=== PATIENT | male | born 1960 ===

== ENCOUNTER 2018-05-21 09:47 | Inpatient (IN) | payer OTHER ==
[2018-05-21] MEDS ORDERED: cefOXitin SODIUM 2 GM in NS 100 ML IV ONE (10:02)
[2018-05-21] MEDS ORDERED: LIDOCAINE 1% 2 ML INJ ID PRN (10:02)
[2018-05-21] MEDS ORDERED: LR 1,000 ML IV ONE (10:02)
[2018-05-21] MEDS ORDERED: BUPIVACAINE/EPI 0.5% 30 ML SDV ONE (10:45)
[2018-05-21] MEDS ORDERED: HYDROmorphONE/DILAUDID 1 MG/ML INJ IVP PRN ×2 (11:08→16:17)
[2018-05-21] MEDS ORDERED: MIDAZOLAM 2 MG/2 ML VIAL IVP ONE (11:08)
[2018-05-21] MEDS ORDERED: NALOXONE HCL 0.4 MG/ML INJ IVP PRN (11:08)
[2018-05-21] MEDS ORDERED: fentaNYL 100 MCG/2 ML INJ IVP PRN (11:08)
[2018-05-21] MEDS ORDERED: ACETAMINOPHEN 500 MG TAB PO PRN (11:08)
[2018-05-21] MEDS ORDERED: DEXAMETHASONE 4 MG/ML VIAL IVP PRN (11:08)
[2018-05-21] MEDS ORDERED: ALBUTEROL 3 ML DEYVIAL IH PRN (11:08)
[2018-05-21] MEDS ORDERED: oxyCODONE IR 5 MG TAB PO PRN (11:08)
[2018-05-21] MEDS ORDERED: ONDANSETRON 4 MG/2 ML VIAL IVP PRN ×2 (11:08→16:17)
--- NOTE | 2018-05-21 11:10 | PDANEPAE ---
ANE History of Present Illness Robot Prostatectomy ANE Past Medical History - Cardiovascular History Hx Hypertension: No Hx Arrhythmias: No Hx Chest Pain: No Hx Coronary Artery / Peripheral Vascular Disease: No Hx CHF / Valvular Disease: No Hx Palpitations: No - Pulmonary History Hx COPD: No Hx Asthma/Reactive Airway Disease: No Hx Recent Upper Respiratory Infection: No Hx Oxygen in Use at Home: No Hx Sleep Apnea: No Sleep Apnea Screening Result - Last Documented: Negative - Neurologic History Hx Cerebrovascular Accident: No Hx Seizures: No Hx Dementia: No - Endocrine History Hx Diabetes: No - Renal History Hx Renal Disorders: No - Liver History Hx Hepatic Disorders: No - Neurological & Psychiatric Hx Hx Neurological and Psychiatric Disorders: No - Cancer History Hx Cancer: No Cancer History Comment: prostate new diagnosis - Congenital Disorder History Hx Congenital Disorders: No - GI History Hx Gastrointestinal Disorders: No - Other Health History Other Health History: none - Chronic Pain History Chronic Pain: No - Surgical History Prior Surgeries: pelvic repair ANE Review of Systems Review of Systems: - Exercise capacity Exercise capacity: >=4 METS METS (RN): 6 METS ANE Patient History - Allergies Allergies/Adverse Reactions: bee venom protein (honey bee) Allergy (Verified 05/18/18 10:26) Other-Enter Comments - Home Medications Home Medications: Acetaminophen [Tylenol 325mg (*)] 325 mg PO DAILY PRN 05/12/18 [Last Taken 2 Weeks Ago ~05/07/18] - NPO status NPO Since - Liquids (Date): 05/20/18 NPO Since - Liquids (Time): 22:00 NPO Since - Solids (Date): 05/20/18 NPO Since - Solids (Time): 10:00 - Smoking Hx Smoking Status: Never smoked - Family Anes Hx Family Hx Anesthesia Complications: none ANE Labs/Vital Signs - Vital Signs Blood Pressure: 129/83 Heart Rate: 69 Respiratory Rate: 14 O2 Sat (%): 93 Height: 177.8 cm Weight: 113.398 kg ANE Physical Exam - Airway Neck exam: FROM Mallampati Score: Class 2 Mouth exam: normal dental/mouth exam - Pulmonary Pulmonary: clear to auscultation - Cardiovascular Cardiovascular: regular rate and rhythym - ASA Status ASA Status: II ANE Anesthesia Plan Anesthesia Plan: general endotracheal anesthesia
[2018-05-21] MEDS ORDERED: HYDROmorphONE/DILAUDID 2 MG/ML INJ ONE (11:13)
[2018-05-21] MEDS ORDERED: PROPOFOL 200 MG/20 ML VIAL ONE (11:14)
[2018-05-21] MEDS ORDERED: ONDANSETRON 4 MG/2 ML VIAL ONE (11:15)
[2018-05-21] MEDS ORDERED: DEXAMETHASONE 4 MG/ML VIAL ONE (11:15)
--- NOTE | 2018-05-21 12:10 | PDHPUP ---
History & Physical Update H&P update statement: This history and physical update is based on an assessment of the patient which was completed after admission or registration (within 24 hours), but prior to the surgery/procedure. H&P update: no change in patient's condition since H&P completed
[2018-05-21] MEDS ORDERED: THROMBIN(HUM PLAS)/FIBRINOG/CA 2 ML VIAL TP ONE ×2 (13:09→13:56)
[2018-05-21] MEDS ORDERED: ROCURONIUM 100 MG/10 ML VIAL ONE (13:16)
[2018-05-21] MEDS ORDERED: THROMBIN (BOVINE) 20,000 UNIT VIAL TP ONE (14:30)
--- NOTE | 2018-05-21 16:10 | POSTANESTH ---
Post Anesthetic Evaluation Cardiovascular Status: Normal, Stable Respiratory Status: Normal, Stable Level of Consciousness/Mental Status: Can Participate in Eval, Mildly Sleepy, Arousable Pain Control: Adequate, Prn Tx Ordered Nausea/Vomiting Control: Adequate, Prn Tx Ordered Complications Possibly Related to Anesthesia: None Noted
--- NOTE | 2018-05-21 16:16 | POSTOPPROG ---
Post Op Note Date of Operation: 05/21/18 Surgeon: Gisela Villegas (# [id number]) Disaster Response Director: Evangelina Uribe Anesthesia: GET(General Endotracheal) Pre-op Diagnosis: Prostate cancer Post-op Diagnosis: Prostate cancer Procedure: Attempted robotic radical prostatectomy, left PLND Findings: See op note Inf/Abcess present in the surg proc area at time of surgery?: No EBL: 100-500 (150 cc) Complications: Unable to remove prostate due to extensive deep pelvic venous collateralization and associated pelvic fibrosis Drains: Jarrett Boles (10 Flat) Specimen(s): Left pelvic LN's
[2018-05-21] MEDS ORDERED: PROMETHAZINE HCL 25 MG/ML INJ IVP PRN (16:17)
[2018-05-21] MEDS ORDERED: LIDOCAINE 2% JELLY 5 ML TUBE TP PRN (16:17)
[2018-05-21] MEDS ORDERED: HYDROCODONE/APAP 10/325 TAB PO PRN (16:17)
[2018-05-21] MEDS: D5W 1/2 NS 1,000 ML IV SCH (17:21)
--- NOTE | 2018-05-21 18:41 | GOP ---
[f rep st] OPERATIVE REPORT DATE OF OPERATION: 05/21/2018 SURGEON: Gisela Villegas MD SEXUAL HEALTH PHYSICIAN: Liya Uribe ANESTHESIA: General endotracheal. PREOPERATIVE DIAGNOSIS: Prostate adenocarcinoma. POSTOPERATIVE DIAGNOSIS: Prostate adenocarcinoma. PROCEDURE PERFORMED: 1. Attempted robotically-assisted laparoscopic radical prostatectomy. 2. Robotically-assisted laparoscopic left pelvic lymphadenectomy. FINDINGS: Extensive pelvic fibrosis overlying the right obturator fossa, to a lesser extent the left obturator fossa, and extensive fibrosis involving the deep pelvis overlying the prostate and endopelvic fascia. An extensive, aberrant, and deep right-sided pelvic venous plexus was encountered lateral to the right side of the prostate, deep to the endopelvic fascia. My presumption is this venous collateralization developed as a result of the patient's prior extensive pelvic fracture from several years ago. SPECIMENS: Left pelvic lymph node package. ESTIMATED BLOOD LOSS: Approximately 150 cc. INDICATIONS: This is a gentleman who was diagnosed recently with clinically localized prostate adenocarcinoma and has opted for radical prostatectomy as definitive therapy. The indications for the procedures, as well as potential risks and complications, were discussed with the patient preoperatively. He appeared to understand, his questions were answered, and he wished to proceed. Written informed surgical consent was thereafter obtained. DESCRIPTION OF PROCEDURE: The patient was brought to the operating room and administered general endotracheal anesthesia. He was carefully placed in the low lithotomy position on the operating room table with Reji stirrups. The arms were extended less than 90 degrees on arm boards. All appropriate pressure points were padded as necessary. The abdomen and genitalia were sterilely prepped and draped in standard fashion utilizing Ioban. An 18-Surinamese Riggs catheter was placed to bag drainage sterilely on the field without complication. I obtained intraabdominal access by using a Veress needle approximately 2 cm above the umbilicus in the midline. The abdomen was insufflated to 15 mmHg pressure. A 12 mm laparoscopic port was placed at this location, and the 0- degree 12 mm robotic camera was used to confirm proper intraabdominal placement. The abdomen was carefully inspected. There were no obvious abnormalities appreciated at this point with the exception of a few adhesions between the colonic mesentery on the left side and the lateral abdominal wall on that same side. I then marked out my remaining port sites which were as follows: An 8 mm robotic port placed in the left lower quadrant approximately 2 cm below the umbilicus and 12 cm lateral to the midline, an 8 mm robotic port in the right lower quadrant 2 cm below the umbilicus and 7.5 cm lateral to the midline, a third 8 mm robotic port placed 8 cm lateral to the right lower quadrant robotic port and nearly in the same transverse line as the umbilicus, and a 12 mm assistant production manager port placed in the left upper quadrant along the lateral edge of the rectus muscle. All these ports were placed under direct vision without complication. The patient was then placed in approximately 27 degree Trendelenburg position. The robot was then docked between the patient's legs. The robotic arms were then secured to the appropriate laparoscopic and robotic ports. The 12 mm 0-degree camera was used throughout the surgery. I then left the patient's bedside and entered the surgeon's robotic console. I began the robotic portion of the procedure by sharply releasing the adhesions between the left colonic mesentery and the lateral abdominal wall. I was able to identify the left vas deferens. The peritoneum overlying it was further incised down towards the pelvis posterior to the bladder and prostate. I then extended the incision through the posterior peritoneum approximately 2 cm above the rectum and continued this incision a few centimeters on either side of the midline with monopolar scissors dissection. I then used a gentle spreading motion in order to identify the vas deferens bilaterally at this location. These were carefully dissected free and transected a few centimeters proximal to their insertion at the base of the prostate. The seminal vesicles on each side were then identified and carefully dissected free from the surrounding tissue. The tips to the seminal vesicles were ligated with Hem-o-lucero clips and divided with scissors. Once the seminal vesicles had been completely freed, I then made an incision through Denonvilliers fascia in the midline, posterior to the prostate, by making a transverse incision at this location with monopolar scissors. I then continued this dissection toward the prostatic apex as far as possible using a gentle spreading motion in order to develop the plane between the prostate anteriorly and the rectum posteriorly. This completed the posterior dissection. Hemostasis at this location was confirmed. I then turned my attention to the anterior dissection. The obliterated umbilical ligaments were identified on each side. An incision was made through the anterior peritoneum, high along the anterior abdominal wall, lateral to the obliterated umbilical ligaments. This incision through the anterior peritoneum was carried in a cephalad fashion towards the underlying vas deferens. A gentle spreading motion was then used to develop the lateral pelvic spaces bilaterally. The obliterated umbilical ligaments were ligated high along the anterior abdominal wall with bipolar cautery and divided with scissors. The incisions through the obliterated umbilical ligaments were then connected in the midline by incising through the anterior peritoneum with monopolar scissors. This allowed entrance into the retropubic space of Retzius. I continued this dissection by dropping the bladder in order to theoretically allow for better visualization of the prostate and pelvis. I dissected bilaterally, lateral to the prostate on each side, in order to identify the endopelvic fascia. The endopelvic fascia was more easily seen on the left side. It was incised with monopolar scissors and then this transection through the fascia on the left side was extended from the apex of the prostate to the base using cold scissors dissection. The levator ani muscles were carefully teased off the prostate with gentle blunt dissection. As I approached the puboprostatic ligament on the left side, further cutting with scissors resulted in significant bleeding along the left apex of the prostate. I was able to control this bleeding with bipolar cautery. I then turned my attention to the right side. The endopelvic fascia was not easily identified on the right side. There was an extensive amount of fibrosis overlying the endopelvic fascia on this side. I made an incision through the perceived location of the endopelvic fascia, lateral to the midportion of the prostate, with monopolar scissors. Upon doing so, there was a significant amount of venous bleeding encountered. I was able to temporarily control this with bipolar cautery. I then attempted to continue my incision through the endopelvic fascia by extending it initially towards the base of the prostate and then towards the apex. However, with each subsequent attempted cut made through the endopelvic fascia, I encountered more bleeding that appeared to be venous in nature and became progressively more brisk. I tried to identify the specific location of the bleeding, but it was difficult to appreciate and appeared more diffuse than focal. There appeared to be an extensive aberrant venous vascular plexus underlying the endopelvic fascia and lateral to the right side of the prostate which I had entered. I decided to pack this area off with Surgicel and an overlying laparotomy sponge. Manual pressure with the robotic instruments was also placed at this location after applying the Surgicel and laparotomy sponge. I then attempted to dissect on the right side near the apex of the prostate, in the region of the puboprostatic ligament. However, any attempted cutting with scissors resulted in more bleeding lateral to the prostate, between the prostate and the lateral pelvic sidewall. I was able to control this bleeding with a combination of bipolar cautery and placement of Surgicel. However, this bleeding was hampering my ability to identify the lateral margin of the prostate on the right side and also I was unable to extend my incision through the endopelvic fascia towards the puboprostatic ligament due to bleeding with any attempted cutting through the fascia in this location. After packing this area off with additional Surgicel and laparotomy sponges, I decided to proceed with bilateral pelvic lymphadenectomy. I started on the right side. I was able to identify the external iliac vein and carefully dissected below and medial to it with cold scissors dissection. In this location, there was also noted to be an extensive fibrotic process that made the lymph node packet extremely friable and caused it to bleed easily. I spent a considerable amount of time trying to identify the location of the right -sided obturator nerve as it traversed through the obturator fossa. I had an extremely difficult time finding it because of the fibrotic change on this side and also related to some of the bleeding with gentle blunt dissection in this location. After spending an extensive amount of time in this area, I was unable to identify the location of the obturator nerve. As a result, I did not feel comfortable performing lymphadenectomy on the right side without being able to visualize the obturator nerve at the same time. That being said, there was no obvious metastatic lymphadenopathy grossly appreciated on this side. There appeared to be a fair amount of matilda tissue versus retroperitoneal fat with fibrosis in this location. I then turned my attention to performing the lymphadenectomy on the left side. I also had some difficulty identifying the obturator nerve on this side due to some abnormal fibrosis, although this fibrosis was not as extensive as was noted on the right side. I was ultimately able to identify the location and position of the left obturator nerve. I then dissected the lymph node package on this side using the following limits of dissection: The left external iliac vein laterally, the lateral aspect of the bladder medially, the obturator nerve posteriorly, the pelvic sidewall caudally, and the bifurcation of the common iliac vein cranially. The lymph node package was dissected free with the aid of several Hem-o-lucero clips that were used for both hemostasis and ligation of lymphatics. The lymph node package was then collected in a specimen bag and submitted as a permanent histologic specimen. There were no obviously metastatic lymph nodes noted visually during this dissection. I then turned my attention back to the right obturator fossa. I spent some more time trying to identify the location of the right obturator nerve but was still unable to do so. I did not want to risk experiencing more significant bleeding in this location. Therefore, I abandoned any further attempts to perform lymphadenectomy on the right side. I then returned back to the prostate. I carefully removed the laparotomy sponge and the previously placed Surgicel in this area. Hemostasis appeared to be present at this point. I tried to again perform some gentle blunt dissection lateral to the right side of the prostate in the region where the levator ani muscles would normally be resting adherent to the lateral aspect of the prostate. However, any additional attempts to perform even gentle blunt dissection in this location were unsuccessful due to more bleeding encountered. At this point, I gave careful consideration on how to proceed. I was concerned that if I attempted to continue with the prostatectomy that there would be extensive bleeding and I would be unable to adequately ensure that I could remove the prostate intact and therefore maintain appropriate oncologic technique. Considering that the patient's cancer was predominantly in the right mid gland and right apex, not being able to visualize the margins for resection, and taking into consideration the associated bleeding, I did not feel that it would be in the best interest of the patient to continue with prostatectomy at this point. I was also concerned that even if I was able to adequately remove the prostate, that significant pelvic bleeding would prevent me from performing an adequate urethrovesical anastomosis. Therefore, I decided to abandon further attempts at continuing with prostatectomy. I then placed some Gel-Foam, as well as additional Surgicel, along the deep right lateral pelvic space, as well as overlying prostatic apex in the region of the puboprostatic ligaments and dorsal vein complex. Some additional Surgicel was placed in the location of the obturator fossae bilaterally. I then placed a total of 5 cc of Evicel over these locations as well for further hemostatic assurance. The intraabdominal pressure was then temporarily decreased to 5 mmHg, and no additional bleeding was noted. With the pressure increased back to 15 mmHg, I then placed a 10 flat Jarrett-Boles drain in the pelvis and brought it out through the left lower quadrant robotic port site. This completed the robotic portion of procedure. It should also be mentioned that I gave consideration to converting to an open prostatectomy. However, because of the extensive venous plexus bleeding in the right pelvis, I was extremely concerned that I would encounter even more bleeding difficulties without the aid of the insufflation that has been present with an attempted robotic prostatectomy. Therefore, I did not believe that I would be able to more effectively perform prostatectomy through an open approach as compared to the robotic approach. I then returned to the patient's bedside. The rectus fascia at the location of the 12 mm port sites were reapproximated with an 0 Vicryl suture and a fascial closure device. All the remaining robotic ports were then removed. All the wounds were anesthetized with a total of 30 cc of 0.5% Marcaine with epinephrine. The skin edges were then reapproximated with a running 4-0 Monocryl suture in a subcuticular fashion. The Jarrett-Boles drain was secured to the skin with a 2-0 silk suture. It was then dressed with a bio patch and Tegaderm, and connected to bulb suction. The patient was then awakened, extubated, transferred to his bed, and taken to the recovery room. He tolerated the procedure well overall. DISPOSITION: The patient was transferred to the recovery room in stable condition. He will be admitted overnight for postoperative care. Copy requested to: Mavis Dobbins PA-C /[id number]/MODL MTDD
[2018-05-22] MEDS: D5W 1/2 NS 1,000 ML IV SCH (03:14)
--- NOTE | 2018-05-22 09:23 | SOAPPROG ---
SOAP Progress Note Assessment/Plan: Assessment: POD 1 s/p attempted robotic radical prostatectomy + left PLND - stable. Thoroughly discussed intraoperative findings and events w/ pt. this AM, all questions answered. Plan: Probable discharge later today. (d/c summ. # [id number]). Subjective: No complaints this AM. Objective: Vital Signs Temp Pulse Resp BP Pulse Ox 36.8 C 74 17 115/69 91 L 05/22/18 08:41 05/22/18 08:41 05/22/18 08:41 05/22/18 08:41 05/22/18 08:41 Laboratory Results 05/22/18 04:42 05/22/18 04:42 05/21/18 05/22/18 05/23/18 05:59 05:59 05:59 Intake Total 1620 1476 Output Total 1290 785 Balance 330 691 Physical Exam - Physical Exam General Appearance: WD/WN, alert, no apparent distress Abdomen: non-tender, soft, other (incisions c/d/i) Male Genitalia: other (urine clear via Riggs) Skin: normal color, warm/dry Extremities: non-tender, normal inspection Neuro/Psych: alert, normal mood/affect, oriented x 3 ICD10 Worksheet Patient Problems: Problems Problem Status Onset Prostate cancer Acute - ICD10 Problem Qualifiers (1) Prostate cancer
[2018-05-22 11:37] VITALS: BP 136/73
--- NOTE | 2018-05-22 14:08 | PDMN ---
Medical Necessity Medical necessity: Pt meets inpt criteria per MD order and Gen surg GRG, lap L pelvic lymphadenectomy and attempted lap rad prostatectomy for prostate adenocarcinoma
--- NOTE | 2018-05-23 08:16 | GDS ---
[f rep st] DISCHARGE SUMMARY ADMISSION DIAGNOSIS: Prostate cancer. DISCHARGE DIAGNOSIS: Prostate cancer. PROCEDURE: Attempted robotically-assisted radical prostatectomy and left pelvic lymphadenectomy on 05/21/2018. HOSPITAL COURSE: Refer to the operative report for details regarding the procedure. Postoperatively, the patient did well. Intraoperative events and rationale for inability to surgically remove his prostate were reviewed in detail this morning. The patient has done well following surgery. He was tolerating a regular diet and ambulating. Vital signs were stable and he was afebrile. Postoperative laboratory work was unremarkable. He was ready for discharge on postoperative day 1. He has been given routine activity restriction instructions. He will maintain a regular diet. Medications have been reviewed , and he will be taking [place] p.r.n. pain, as well as ibuprofen p.r.n. He has been instructed to contact my office to arrange followup in approximately 2 weeks. He will also contact Dr. Marquez's office to schedule an appointment to meet with him regarding radiation therapy. /[id number]/MODL MTDD
== END 2018-05-22 15:12 | disposition home or self-care (01) | DRG 716 ==
LOC: UNDOADMIN 09:47 → INTOOBSV 09:47 → F3N 09:47 → FSGY 09:47 → F1N 09:47 → F3N 11:21 → F1N 11:21 → EDSTATUS 11:30 → F1N 17:15 → OBSVTOIN 05-22 13:23
PROVIDERS: ADMIT Specialist; ATTEND Specialist
DX: C61 Malignant neoplasm of prostate (principal); I87.8 Other specified disorders of veins; N40.0 Benign prostatic hyperplasia without lower urinary tract symptoms; N52.9 Male erectile dysfunction, unspecified; Z87.81 Personal history of (healed) traumatic fracture
CPT/HCPCS: J0694; J1100; J1170; J2250; J2405; J2550; J2704